=== PATIENT | female | born 1985 | race African-American/Black ===

== ENCOUNTER 2018-06-07 18:59 | Emergency (ER) | payer OTHER ==
[2018-06-07 19:28] VITALS: BP 110/74; PULSE 80; TEMP 98.3; BMI 24.7
--- NOTE | 2018-06-07 19:55 | PDOC ---
History of Present Illness - General Chief Complaint: Pain Stated Complaint: STOMACH PAIN Time Seen by Provider: 06/07/18 19:54 - History of Present Illness Initial Comments: 06/07/18 21:26 The patient is a 33 year old female with a history of pancreatitis who presents for evaluation of abdominal pain. The patient reports sharp epigastric abdominal pain with radiation to her back beginning 4 days ago that is similar to her prior episodes of pancreatitis. She states that she gets pancreatitis due to alcohol use and drank heavily this prior weekend prior to the onset of her symptoms. She notes decreased appetite as well as nausea with 2 episodes of non-bilious, non-bloody vomiting. She otherwise denies fevers, chills, SOB, chest pain, or changes with urination or bowel movements. Past History - Past Medical History Allergies/Adverse Reactions: Allergies Allergy/AdvReac Type Severity Reaction Status Date / Time latex Allergy Mild Itching Verified 06/07/18 19:28 Penicillins Allergy Mild Swelling Verified 06/07/18 19:28 Home Medications: Ambulatory Orders Pantoprazole Sodium [Protonix -] 40 mg PO DAILY #20 tablet.ec 06/07/18 COPD: No Other medical history: pancreatitis - Suicide/Smoking/Psychosocial Hx Smoking History: Never smoked Have you smoked in the past 12 months: Yes Number of Cigarettes Smoked Daily: 5 Information on smoking cessation initiated: No Hx Alcohol Use: Yes Drug/Substance Use Hx: No Substance Use Type: None Review of Systems - Review of Systems Comments:: 06/07/18 21:29 Constitutional: No fevers, chills, fatigue, malaise HEENT: No Rhinorrhea, nasal congestion, visual changes Cardiovascular: No chest pain, syncope, palpitations, lightheadedness Respiratory: No Cough, SOB, Hemoptysis, Gastrointestinal: Abdominal pain nausea, vomiting. No Constipation, Diarrhea, Melena Genitourinary: No Dysuria, Frequency, Urgency, Hesitancy, Hematuria, Flank pain Musculoskeletal: No Myalgia, arthralgia Skin: No rashes, itching, bruising, pallor Neurologic: No Headache, Dizziness, Numbness, Weakness, or Tingling Psychiatric: No Hallucinations. No SI or HI *Physical Exam - Vital Signs Last Vital Signs Temp Pulse Resp BP Pulse Ox 98.3 F 80 18 110/74 100 06/07/18 19:23 06/07/18 19:23 06/07/18 19:23 06/07/18 19:23 06/07/18 19:23 - Physical Exam Comments: 06/07/18 21:29 General Appearance: Nourished. No Apparent Distress HEENT: No Pharyngeal Erythema, Tonsillar Exudate, Tonsillar Erythema Neck: No Cervical Lymphadenopathy Respiratory/Chest: Lungs Clear, Normal Breath Sounds. No Crackles, Rales, Rhonchi, Wheezing Cardiovascular: Regular Rhythm, Regular Rate. No Murmur, Gallops, Rubs Gastrointestinal/Abdominal: Normal Bowel Sounds, Soft. Epigastric tenderness to palpation on exam. No Guarding, Rebound Musculoskeletal: No CVA Tenderness Extremity: Normal Capillary Refill Integumentary: Normal Color, Dry, Warm Neurologic: Fully Oriented, Alert, Normal Mood/Affect, Normal Response, ED Treatment Course - LABORATORY CBC & Chemistry Diagram: 06/07/18 20:11 06/07/18 20:11 Medical Decision Making - Medical Decision Making 06/07/18 21:29 The patient is a 33 year old female with a history of pancreatitis who presents for evaluation of abdominal pain. Differential includes but is not limited to: Pancreatitis, Cholecysitits, gastritis, infectious, metabolic Derangement. Given the patient's history and physical exam, we will obtain a cbc, cmp, lipase , ua, gallbladder US to evaluate further. We will treat the patient with iv fluids, zofran and pain management and continue to monitor and reassess while here in the ED. 06/07/18 23:03 CBC, cmp, lipase, ua are unremarkable. Gallbladder US is unremarkable as read by our radiologist. The patient reports improvement in her symptoms. We are comfortable discharging the patient home with GI follow up on protonix. We discussed the results, plan, and return precautions with the patient who voiced understanding and is agreeable with the plan. *DC/Admit/Observation/Transfer Diagnosis at time of Disposition: Abdominal pain Qualifiers: Abdominal location: unspecified location Qualified Code(s): R10.9 - Unspecified abdominal pain - Discharge Dispostion Disposition: HOME Condition at time of disposition: Stable Decision to Admit order: No - Prescriptions Prescriptions: Pantoprazole Sodium [Protonix -] 40 mg PO DAILY #20 tablet.ec - Referrals Referrals: Melissa Perez [Primary Care Provider] - Pranav Alexis MD [Staff Physician] - - Patient Instructions Printed Discharge Instructions: DI for Abdominal Pain-Adult Additional Instructions: Please return to the ER if you experience concerning or worsening symptoms including worsening difficulty breathing, weakness, or chest pain. Your lab and ultrasound results were normal here in the ER. We have sent a prescription to your pharmacy for protonix that you may take daily to help manage your symptoms. Please call to schedule a follow up appointment with your primary care provider and our GI specialist within 2-3 days to discuss your ER visit and further management of your symptoms. - Post Discharge Activity
[2018-06-07] MEDS ORDERED: ONDANSETRON 4 MG/2 ML VIAL IVPUSH ONE (20:02)
[2018-06-07] MEDS ORDERED: SODIUM CHLORIDE 1,000 ML IV STA (20:02)
--- NOTE | 2018-06-07 20:02 | PDOC ---
Attending Attestation - Resident Resident Name: Unruly Beth - HPI HPI: 06/07/18 21:12 Pt presents to the Ed complaining of 4 days of epigastric pain, nausea and vomiting. States that pain is similar to previous episodes of pancreatitis, that have occurred after heavy drinking. Denies fever. + passing gas. - Physicial Exam PE: 06/07/18 21:14 Agree with resident exam. Patient is well appearing and in no acute distress. Abdomen is soft, non distended with tenderness in the epigastrium without guarding or rebound. - Medical Decision Making 06/07/18 21:17 Pt presents to the ED complaining of epigastric pain similar to previous episodes of pancreatitis. Admits to recent heavy ETOH use. + tenderness in the epigastrium on my exam. Differential included pancreatitis, biliary disease , gastritis. Labs show normal lipase and LFTs. Will check RUQ US to evaluate for cholecystitis. Will likely discharge if US is negative.
[2018-06-07] MEDS ORDERED: morphine CARPU-JECT 2 MG/1 ML DISP.SYRIN IVPUSH ONE (20:07)
[2018-06-07] MEDS ORDERED: MORPHINE SULFATE 2 MG/ML VIAL ONE (20:09)
[2018-06-07] MEDS ORDERED: ONDANSETRON 4 MG/2 ML VIAL ONE (20:10)
[2018-06-07 20:27] LABS: BASO % 0.7 % (0-2.0); EOS % 1.1 % (0-4.5); HEMATOCRIT 44.2 % (32.4-45.2); HEMOGLOBIN 14.6 GM/dL (10.7-15.3); LYMPH % 11.8 % (8-40); MCH 28.9 pg (25.7-33.7); MCHC 33.1 g/dl (32.0-36.0); MEAN CELL VOLUME 87.4 fl (80-96); MONO % 6.9 % (3.8-10.2); NEUT % 79.5 % (42.8-82.8); PLATELET COUNT 262 K/MM3 (134-434); RBC 5.06 M/mm3 (3.60-5.2); RDW 14.4 % (11.6-15.6); WHITE BLOOD COUNT 14.5 K/mm3 (4.0-10.0)
[2018-06-07 20:58] LABS: ALBUMIN 4.7 g/dl (3.4-5.0); ALK PHOS 63 U/L (45-117); ANION GAP 14 MMOL/L (8-16); BILIRUBIN,TOTAL 0.9 mg/dL (0.2-1.0); BLOOD UREA NITROGEN 8 mg/dL (7-18); CALCIUM 9.2 mg/dL (8.5-10.1); CHLORIDE 101 mmol/L (98-107); CO2 21 mmol/L (21-32); CREATININE 0.8 mg/dL (0.55-1.3); GLUCOSE,RANDOM 77 mg/dL (74-106); SGPT/ALT 19 U/L (13-61); SODIUM 136 mmol/L (136-145); TOT PROT 9.3 g/dl (6.4-8.2)
[2018-06-07 21:01] LABS: LIPASE 227 U/L (73-393)
[2018-06-07 21:02] LABS: POTASSIUM 4.8 mmol/L (3.5-5.1); SGOT/AST 22 U/L (15-37)
[2018-06-07] MEDS ORDERED: MAG HYDROX/AL HYDROX/SIMETH -MYLANTA- ORAL SUSPENSION PO ONE (21:13)
[2018-06-07] MEDS ORDERED: FAMOTIDINE 20 MG/50 ML IVPB 20 MG/50 ML MG IVPB ONE ×2 (21:30→22:12)
[2018-06-07] MEDS ORDERED: MAG HYDROX/AL HYDROX/SIMETH 30 ML UNIT-DOSE CUP ONE (22:12)
[2018-06-07 22:41] LABS: URINE APPEARANCE CLOUDY; URINE BILIRUBIN NEGATIVE (<2.0 mg/dL); URINE COLOR YELLOW; URINE GLUCOSE (UA) NEGATIVE (NEGATIVE); URINE KETONE 2+ (NEGATIVE); URINE LEUK ESTERASE NEGATIVE (NEGATIVE); URINE NITRITE NEGATIVE (NEGATIVE); URINE PROTEIN NEGATIVE (NEGATIVE); URINE UROBILINOGEN NEGATIVE mg/dL (0.2-1.0)
== END 2018-06-07 23:20 | disposition home or self-care (01) ==
LOC: JER 18:59
PROC: 3E033GC Introduction of Other Therapeutic Substance into Peripheral Vein, Percutaneous Approach (ICD-10-PCS; principal; 2018-06-07)
PROC: 3E033GC Introduction of Other Therapeutic Substance into Peripheral Vein, Percutaneous Approach (ICD-10-PCS; 2018-06-07)
PROC: 3E033NZ Introduction of Analgesics, Hypnotics, Sedatives into Peripheral Vein, Percutaneous Approach (ICD-10-PCS; 2018-06-07)
DX: R10.9 Unspecified abdominal pain (principal); Z87.19 Personal history of other diseases of the digestive system; F10.10 Alcohol abuse, uncomplicated
CPT/HCPCS: 36415; 76705-TC; 80053; 81003; 83690; 85025; 99282-25; J7030

== ENCOUNTER 2024-05-05 16:41 | Emergency (ER) | payer SELFPAY ==
[2024-05-05 16:52] VITALS: BP 106/72; PULSE 106; RESP 18; TEMP 98; BMI 20.3
[2024-05-05 17:42] LABS: PH,URINE 6.5 (5.0-8.0); URINE APPEARANCE CLEAR; URINE BILIRUBIN NEGATIVE (NEGATIVE); URINE COLOR YELLOW; URINE GLUCOSE (UA) NEGATIVE (NEGATIVE); URINE KETONE NEGATIVE (NEGATIVE); URINE LEUK ESTERASE 2+ (NEGATIVE); URINE NITRITE NEGATIVE (NEGATIVE); URINE PROTEIN NEGATIVE (NEGATIVE); URINE UROBILINOGEN 0.2 mg/dL (0.2-1.0)
[2024-05-05] MEDS ORDERED: ACETAMINOPHEN 500 MG TABLET (FP) ONE (17:46)
[2024-05-05] MEDS: ACETAMINOPHEN 500 MG TABLET (FP) PO ONE (17:50)
[2024-05-05] MEDS ORDERED: LIDOCAINE HCL 1%, 10 MG/ML (20ML VIAL) ONE (18:06)
[2024-05-05] MEDS ORDERED: cefTRIAXone SODIUM 1 GM VIAL ONE (18:07)
== END 2024-05-05 18:55 | disposition home or self-care (01) ==
LOC: JER 16:41
DX: N39.0 Urinary tract infection, site not specified (principal); Z20.822 Contact with and (suspected) exposure to COVID-19
CPT/HCPCS: 0241U-QW; 36415; 81003; 81015; 84703; 87086; 87186; 87491; 87591; 99284-25